=== PATIENT | female | born 1995 | race Caucasian/White ===

== ENCOUNTER → 2017-10-24 | Outpatient (CLI) | payer OTHER ==
[2017-10-24 16:45] LABS: BASOPHILS # (AUTO) 0.1 X10^3/uL (0.0-0.1); BASOPHILS % (AUTO) 0.5 % (0.2-1.0); EOSINOPHILS # (AUTO) 0.3 x10^3/uL (0.0-0.2); EOSINOPHILS % (AUTO) 2.2 % (0.9-2.9); HEMATOCRIT 32.7 % (36.0-47.0); HEMOGLOBIN 10.9 g/dL (12.0-16.0); LYMPHOCYTES # (AUTO) 3.1 X10^3/uL (1.3-2.9); LYMPHOCYTES % (AUTO) 25.7 % (21.0-51.0); MEAN CORPUSCULAR HEMOGLOBIN 30.1 pg (27.0-34.0); MEAN CORPUSCULAR HGB CONC 33.3 g/dL (33.0-35.0); MEAN CORPUSCULAR VOLUME 90.4 fL (80.0-100.0); MEAN PLATELET VOLUME 8.3 fL (7.4-11.0); MONOCYTES # (AUTO) 0.7 x10^3/uL (0.3-0.8); MONOCYTES % (AUTO) 5.8 % (0.0-13.0); NEUTROPHILS # (AUTO) 7.9 x10^3/uL (2.2-4.8); NEUTROPHILS % (AUTO) 65.8 % (42.0-75.0); PLATELET COUNT 334 X10^3/uL (150.0-450.0); RED BLOOD COUNT 3.62 X10^6/uL (3.5-5.4); RED CELL DISTRIBUTION WIDTH 14.4 % (11.6-16.5)
[2017-10-24 16:48] LABS: BILIRUBIN,URINE NEGATIVE (NEGATIVE); BLOOD/HEMOGLOBIN,URINE NEGATIVE (NEGATIVE); GLUCOSE, URINE NEGATIVE (NEGATIVE); KETONES,URINE NEGATIVE (NEGATIVE); LEUKOCYTE ESTERASE ,URINE NEGATIVE (NEGATIVE); NITRITES,URINE NEGATIVE (NEGATIVE); PROTEIN,URINE NEGATIVE (NEGATIVE); UROBILINOGEN,URINE NORMAL (NORMAL)
[2017-10-24 16:49] LABS: APPEARANCE,URINE CLEAR (CLEAR); COLOR,URINE YELLOW (YELLOW)
[2017-10-24 16:52] LABS: BLOOD UREA NITROGEN 8 mg/dL (7-18); CALCIUM 8.5 mg/dL (8.5-10.1); CHLORIDE 105 mmol/L (98-107); COR NA(FOR HYPERGLY) 139 mmol/L (136-145); CREATININE 0.72 mg/dL (0.55-1.02); SODIUM 139 mmol/L (136-145); eGFR BLACK RACES > 60 (>60); eGFR NON BLACK RACES > 60 (>60)
== END ==
LOC: LAB 15:52
PROVIDERS: ATTEND Specialist
DX: Z01.818 Encounter for other preprocedural examination (principal); Z34.83 Encounter for supervision of other normal pregnancy, third trimester
CPT/HCPCS: 36415; 80048; 80307; 81003; 85025; 86592; 86850; 86900; 86901; G0434

== ENCOUNTER 2017-10-25 06:27 | Inpatient (IN) | payer OTHER ==
[~2017-10-25 06:27] MED LIST: D5 1/2 NS 1000 ML 1,000 ML IV ONE; D5 1/2 NS 1L W PITOCIN 20 UNITS/L 20 UNITS/1,000 ML BAG IV ONE; D5 LR 1000 ML 1,000 ML IV ONE; PITOCIN ONE
[2017-10-25] MEDS: D5 1/2 NS 1000 ML 1,000 ML IV SCH ×2 (06:50→17:20)
[2017-10-25] MEDS ORDERED: REGLAN INJ 10 MG VIAL IVP PRN ×3 (07:21→17:59)
[2017-10-25] MEDS ORDERED: D5LR 1L W PITOCIN 10 UNITS/L 10 UNITS/1,000 ML BAG IV PRN (07:21)
[2017-10-25] MEDS ORDERED: PITOCIN IVP ONE (07:21)
[2017-10-25] MEDS ORDERED: MORPHINE SULFATE INJ 2 MG INJ IVP PRN (07:21)
[2017-10-25] MEDS ORDERED: NUBAIN INJ 200 MG VIAL MULTIDOSE IVP PRN (07:21)
[2017-10-25] MEDS ORDERED: PHENERGAN INJ 25 MG IV PRN ×2 (07:21→17:59)
--- NOTE | 2017-10-25 07:28 | DR.OB ---
OB Quick Note - Assessment/Plan Assessment/Plan: L&D 10/25/17 at 7:05am S-No complaint. O-Afebrile,VSS WSU=134 with good LTV, +accel, no decel. CTX=none CVX=1cm/thick/-1/VTX AROM with clear fluid. IUPC placed. A-IUP at 39 1/7 weeks for induction IUGR Opioid Abuse P-Begin pitocin induction Anticipate
[2017-10-25] MEDS ORDERED: NUBAIN INJ 10 ONE (11:10)
--- NOTE | 2017-10-25 11:59 | DR.OB ---
OB Quick Note - Assessment/Plan Assessment/Plan: L&D 10/25/17 at 11:45am Pitocin=16mu/min. S-No complaint. O-Afebrile,VSS VEY=433 with good LTV, +accel, no decel. CTX=q 2 1/2 to 3 min., mod. by palpation. CVX=1cm/50%/-2/VTX IUPC inserted. A-IUP at 39 1/7 weeks for induction IUGR Opioid abuse P-Cont. pitocin induction Anticipate
[2017-10-25] MEDS ORDERED: LR 1000 ML IV 1,000 ML IV ONE ×5 (12:00→17:21)
[2017-10-25] MEDS ORDERED: FENTANYL INJ 100 mcg ONE (12:11)
[2017-10-25] MEDS ORDERED: NAROPIN EPIDURAL 0.2% + FENTANYL 90MCG 60 ML EPI ONE (12:12)
[2017-10-25] MEDS ORDERED: NAROPIN EPIDURAL 0.2% 97 ML with FENTANYL INJ 250 mcg 150 MCG EPI ONE ×2 (12:30)
[2017-10-25] MEDS ORDERED: XYLOCAINE 1 % (PLAIN) ONE ×3 (12:39→14:51)
[2017-10-25] MEDS ORDERED: XYLOCAINE 2 % (PLAIN) ONE (12:45)
[2017-10-25] MEDS ORDERED: DIPRIVAN VIAL ONE (14:51)
[2017-10-25] MEDS ORDERED: PITOCIN ONE (14:51)
[2017-10-25] MEDS ORDERED: ZOFRAN INJ 4 MG VIAL ONE (14:51)
[2017-10-25] MEDS ORDERED: ANCEF VIAL 1 GM ONE (15:00)
[2017-10-25] MEDS ORDERED: NS 100 ML IV + SPIKE MINIBAG* 100 ML IV ONE (15:00)
[2017-10-25] MEDS ORDERED: D5 1/2 NS 1L W PITOCIN 20 UNITS/L 20 UNITS/1,000 ML BAG IV ONE ×2 (15:51→17:21)
--- NOTE | 2017-10-25 16:39 | DR.OB ---
OB Quick Note - Assessment/Plan Assessment/Plan: L&D 10/25/17 at 4:30pm Pitocin=20mu/min. S-No complaint. O-Afebrile,VSS HHR=085 with good LTV, +accel, no decel. CTX=q 2 1/2 to 3 min., about 35-45mmHg CVX=1cm/50%/-1 A-IUP at 39 1/7 weeks with failure to dilate P-To C/S.
[2017-10-25] MEDS: DURAMORPH ONE ×2 (16:41→18:02)
[2017-10-25] MEDS ORDERED: PHENERGAN INJ 25 MG IVP PRN (17:54)
[2017-10-25] MEDS ORDERED: BENADRYL INJ 50 MG VIAL IVP PRN ×2 (17:54→17:59)
[2017-10-25] MEDS ORDERED: ZOFRAN INJ 4 MG VIAL IVP PRN ×2 (17:54→17:59)
[2017-10-25] MEDS ORDERED: NARCAN INJ IVP PRN (17:59)
[2017-10-25] MEDS ORDERED: ADACEL TDaP IM ONE (17:59)
[2017-10-25] MEDS ORDERED: PERCOCET TAB 5/325 MG PO PRN (17:59)
[2017-10-25] MEDS ORDERED: MYLICON TAB 80 MG CHEW PO PRN (17:59)
[2017-10-25] MEDS ORDERED: TORADOL 30 MG VIAL IVP PRN (17:59)
[2017-10-25] MEDS ORDERED: D5 1/2 NS 1000 ML 1,000 ML with PITOCIN 20 UNITS IV SCH ×2 (18:00)
[2017-10-25] MEDS: ZANTAC PO SCH (20:25)
[2017-10-26 06:02] LABS: HEMATOCRIT 23.9 % (36.0-47.0); HEMOGLOBIN 8.1 g/dL (12.0-16.0)
[2017-10-26] MEDS: PRENATAL PLUS PO SCH (08:30)
[2017-10-26] MEDS: ZANTAC PO SCH ×2 (08:30→20:21)
[2017-10-26] MEDS: COLACE CAP 100 MG PO SCH ×2 (08:30→20:21)
[2017-10-26] MEDS: FERROUS GLUCONATE PO SCH ×2 (08:30→16:48)
[2017-10-26] MEDS: MOTRIN TAB 800 MG PO PRN ×2 (08:31→17:24)
[2017-10-26] MEDS ORDERED: DIPRIVAN VIAL ONE (09:38)
[2017-10-26] MEDS ORDERED: ZOFRAN INJ 4 MG VIAL ONE (09:38)
[2017-10-26] MEDS ORDERED: ADRENALINE CHL INJ ONE (09:38)
[2017-10-26] MEDS: SUBOXONE FILM SL SCH ×2 (13:24→22:40)
[2017-10-26] MEDS: BACTROBAN OINT TOP SCH ×2 (13:24→21:51)
[2017-10-27] MEDS: MOTRIN TAB 800 MG PO PRN ×2 (00:47→08:33)
[2017-10-27] MEDS: BACTROBAN OINT TOP SCH (05:13)
[2017-10-27] MEDS: SUBOXONE FILM SL SCH (05:34)
[2017-10-27] MEDS: FERROUS GLUCONATE PO SCH (06:03)
[2017-10-27 08:02] VITALS: BP 108/56
[2017-10-27] MEDS: PRENATAL PLUS PO SCH (08:33)
[2017-10-27] MEDS: COLACE CAP 100 MG PO SCH (08:33)
[2017-10-27] MEDS: ZANTAC PO SCH (08:33)
== END 2017-10-27 12:30 | disposition home or self-care (01) | DRG 765 ==
LOC: LD 06:27 → MED/SURG 18:20
PROVIDERS: ADMIT Specialist; ATTEND Specialist
PROC: 10907ZC Drainage of Amniotic Fluid, Therapeutic from Products of Conception, Via Natural or Artificial Opening (ICD-10-PCS; 2017-10-25)
PROC: 3E033VJ Introduction of Other Hormone into Peripheral Vein, Percutaneous Approach (ICD-10-PCS; 2017-10-25)
PROC: 10D00Z1 Extraction of Products of Conception, Low, Open Approach (ICD-10-PCS; principal; 2017-10-25 16:30)
DX: O99.013 Anemia complicating pregnancy, third trimester (principal); Z37.0 Single live birth; D50.8 Other iron deficiency anemias; O99.613 Diseases of the digestive system complicating pregnancy, third trimester; O99.323 Drug use complicating pregnancy, third trimester; Z3A.39 39 weeks gestation of pregnancy; O61.8 Other failed induction of labor; O62.0 Primary inadequate contractions; O28.5 Abnormal chromosomal and genetic finding on antenatal screening of mother; Z01.818 Encounter for other preprocedural examination; Z34.83 Encounter for supervision of other normal pregnancy, third trimester; F11.10 Opioid abuse, uncomplicated
CPT/HCPCS: 36415; 80048; 80307; 81003; 85014; 85018; 85025; 86592; 86850; 86900; 86901; A4216; A4222; S0197; G0434; J0170; J0690; J1885; J2001; J2300; J2405; J2590; J3010; J3490; J7042; J7120